=== PATIENT | female | born 1950 | race African-American/Black ===

== ENCOUNTER → 2025-04-24 | Outpatient (CLI) | payer BC ==
[~2025-04-24] MED LIST: DIATR MEGLU/DIATRIZOATE SOLN 120ML ONE
== END | disposition home or self-care (01) ==
LOC: RAD 09:00
PROVIDERS: ATTEND Surgery
DX: K57.30 Diverticulosis of large intestine without perforation or abscess without bleeding (principal); Z93.3 Colostomy status
CPT/HCPCS: 74270; Q9963